=== PATIENT | male | born 1960 | race Caucasian/White ===

== ENCOUNTER 2019-05-05 09:48 | Emergency (ER) | payer OTHER ==
[~2019-05-05] VITALS: Ht 172.7 cm; Wt 99.8 kg
[2019-05-05 09:50] VITALS: BP_SYST 151
--- NOTE | 2019-05-05 09:50 | NUR ---
Placed in room 3 . Placed on patient monitor, blood pressure machine and pulse oximeter. To gown for exam. Side rails up. Report given to Terri.
--- NOTE | 2019-05-05 10:07 | NUR ---
Pt arrived to ED via BLS with complaints of extreme left knee pain. Pt stated that pain is sharp and stabbing, mostly in the back of the left knee but it does radiate to the upper posterior thigh. Pt stated that 3 days he was sprinting after the bully neighborhood cat and felt extreme pain. Today when pt was attempting to shower he felt a pop and was unable to bear weight.
--- NOTE | 2019-05-05 10:15 | NUR ---
ER at bedside examining patient.
[2019-05-05] MEDS ORDERED: MORPHINE 4 MG/ML INJ. SYRINGE IM ONE (10:30)
[2019-05-05] MEDS ORDERED: MORPHINE 4 MG/ML INJ. SYRINGE ONE (10:36)
[2019-05-05] MEDS ORDERED: KETAMINE 30 MG/3 ML SYRINGE 30 MG in NS 100 ML IV ONE (11:00)
--- NOTE | 2019-05-05 11:15 | NUR ---
ER at bedside examining patient, discussing xray results
[2019-05-05 11:31] LABS: BASOPHILS # (AUTO) 0.1 K/uL (0.0-0.2); BASOPHILS % (AUTO) 0.8 % (0.0-2.0); EOSINOPHILS % (AUTO) 0.3 % (0.0-4.0); HEMOGLOBIN 14.8 g/dL (14.0-18.0); LYMPHOCYTES # (AUTO) 1.1 K/uL (1.0-5.5); LYMPHOCYTES % (AUTO) 13.6 % (20.5-51.5); MEAN CORPUSCULAR HEMOGLOBIN 31 pg (27-31); MEAN CORPUSCULAR HGB CONC 34 % (32-36); MEAN CORPUSCULAR VOLUME 90 fL (79.0-98.0); MONOCYTES # (AUTO) 0.6 K/uL (0.0-1.0); NEUTROPHILS # (AUTO) 6.6 K/uL (1.8-7.7); NEUTROPHILS % (AUTO) 78.3 % (40.0-70.0); PLATELET COUNT (AUTO) 209 K/uL (130-430); RED BLOOD CELL COUNT(AUTO) 4.81 MIL/uL (4.2-6.2); RED CELL DISTRIBUTION WIDTH 13.2 % (9.0-15.0); WHITE BLOOD COUNT (AUTO) 8.4 K/uL (4.8-10.8)
[2019-05-05] MEDS ORDERED: KETAMINE 30 MG/3 ML SYRINGE ONE ×2 (11:39→14:09)
--- NOTE | 2019-05-05 11:45 | NUR ---
Ketamine 30mg/100mL NS intiated at 412 mL/min. After 5 min, pt c/o "holland closing in," feeling hot, nauseated. Ketamine dc'd, pt assisted to rai's position, VSS. Dr. Velasquez notified. Verbal order of ativan IVP. Pt refuses medication at this time, states "I feel better now, I just felt doped up. I don't want any meds right now." Will continue to monitor.
[2019-05-05 11:49] LABS: CALCIUM 8.8 mg/dL (8.4-11.0); CREATININE 0.93 mg/dL (0.55-1.30); POTASSIUM 4.2 mmol/L (3.5-5.1)
[2019-05-05 11:54] LABS: TOTAL BILIRUBIN 0.5 mg/dL (0.0-1.0)
--- NOTE | 2019-05-05 12:07 | NUR ---
Called Radiology, spoke with Mya regarding need for Radiologist to read left knee XR.
[2019-05-05] MEDS: LORazepam 2 MG/ML VIAL IVP ONE ×2 (12:19→12:40)
--- NOTE | 2019-05-05 12:25 | NUR ---
MD Velasquez at bedside. Pt agrees to 1mg Ativan IV slow push and continuing Ketamine drip. Per MD, remaining ketamine to be given over 30 min.
[2019-05-05] MEDS ORDERED: LORazepam 2 MG/ML VIAL IVP ONE (12:30)
[2019-05-05] MEDS ORDERED: KETAMINE 30 MG/3 ML SYRINGE IVP ONE (14:00)
--- NOTE | 2019-05-05 14:02 | NUR ---
Dr. Velasquez at bedside wih pt administering Ketamine IVP. Pt is connected to monitor. RN will remain at bedside for 15 minutes post IVP
--- NOTE | 2019-05-05 14:05 | NUR ---
Left leg knee immobilize applied to pt. Pt tolerated well.
--- NOTE | 2019-05-05 14:20 | NUR ---
Pt stated that he is ok to restarted Ketamine drip. Will remain bedside with pt to make sure medication is able to be tolerated.
--- NOTE | 2019-05-05 14:22 | NUR ---
ER Dr. Velasquez at bedside with pt and pts .
--- NOTE | 2019-05-05 14:23 | NUR ---
Pt stated that pain is tolerable. Pt positive for pulses on left leg, all pulses strong and foot is warm to the touch.
[2019-05-05 14:50] VITALS: BP_SYST 122
--- NOTE | 2019-05-05 14:50 | NUR ---
Patient given written and verbal discharge instructions and verbalizes understanding. ER MD discussed with patient the results and treatment provided. Patient in stable condition. ID arm band removed. IV catheter removed intact and dressing applied, no active bleeding. Rx of [place] & Motrin given. Patient educated on pain management and to follow up with PMD. Pain Scale 4/10. Opportunity for questions provided and answered. Medication side effect fact sheet provided.
== END 2019-05-05 14:50 | disposition home or self-care (01) ==
LOC: SED 09:48
DX: M25.562 Pain in left knee (principal)
CPT/HCPCS: 29505; 36415; 73564; 80053; 85025; 96365; 96372; 96375; 96376; 99284; J2060; J2270